=== PATIENT | female | born 1965 | race Two or more races ===

== ENCOUNTER 2021-09-20 17:49 | Emergency (ER) | payer OTHER ==
[~2021-09-20] VITALS: Ht 152.4 cm; Wt 59.0 kg
[2021-09-20] MEDS ORDERED: BENZ200C53 PO (19:33)
[2021-09-20] MEDS ORDERED: AZIT250T PO (19:33)
--- NOTE | 2021-09-20 19:53 | NUR ---
RECEIVED PATIENT AWAKE , ORIENTED , ON ROOM AIR , AMBULATORY , DENIES DISTRESS AT THIS TIME
== END 2021-09-20 20:30 | disposition home or self-care (01) ==
LOC: ER 17:56
DX: J20.9 Acute bronchitis, unspecified (principal); J45.909 Unspecified asthma, uncomplicated
CPT/HCPCS: A4663

== ENCOUNTER 2024-09-18 16:07 | Emergency (ER) | payer OTHER ==
[~2024-09-18] VITALS: Ht 152.4 cm; Wt 62.6 kg
[~2024-09-18 16:07] MED LIST: AZIT250T PO; BENZ200C53 PO
[2024-09-18] MEDS ORDERED: FLUORESCEIN SODIUM 1 MG STRIP ONE (16:45)
[2024-09-18] MEDS: FLUORESCEIN SODIUM 1 MG STRIP OP ONE (16:48)
[2024-09-18] MEDS ORDERED: FAMC500T3 PO (17:06)
[2024-09-18] MEDS ORDERED: ACET1TAB23 PO (17:06)
[2024-09-18 17:17] VITALS: BP 121/67; O2SAT 99
== END 2024-09-18 17:21 | disposition home or self-care (01) ==
LOC: ER 16:07
DX: B02.9 Zoster without complications (principal); J45.909 Unspecified asthma, uncomplicated
CPT/HCPCS: A4606; A4663